=== PATIENT | female | born 1950 | race Two or more races ===

== ENCOUNTER 2020-10-03 07:24 | Outpatient (CLI) | payer OTHER | END 2020-10-03 07:41 | disposition home or self-care (01) | LOC: MRI 07:24 | DX: Z12.31 Encounter for screening mammogram for malignant neoplasm of breast (principal); Z87.898 Personal history of other specified conditions; N60.12 Diffuse cystic mastopathy of left breast; N60.11 Diffuse cystic mastopathy of right breast; N63.0 Unspecified lump in unspecified breast; R87.613 High grade squamous intraepithelial lesion on cytologic smear of cervix (HGSIL); M89.8X0 Other specified disorders of bone, multiple sites; M81.0 Age-related osteoporosis without current pathological fracture; R51.9 Headache, unspecified | CPT/HCPCS: 70553; 76641; 76830; 77067; A9575 ==

== ENCOUNTER 2020-10-06 13:53 | Outpatient (CLI) | payer OTHER | END 2020-10-06 14:01 | disposition home or self-care (01) | LOC: NUCLEAR 13:53 | PROVIDERS: ATTEND Obstetrics & Gynecology Gynecology | DX: M81.0 Age-related osteoporosis without current pathological fracture (principal); M89.9 Disorder of bone, unspecified ==

== ENCOUNTER 2021-10-29 07:37 | Outpatient (CLI) | payer OTHER | END 2021-10-29 07:41 | disposition home or self-care (01) | LOC: TOM 07:37 | PROVIDERS: ATTEND Internal Medicine Cardiovascular Disease | DX: R10.9 Unspecified abdominal pain (principal); M17.9 Osteoarthritis of knee, unspecified; M15.9 Polyosteoarthritis, unspecified ==

== ENCOUNTER → 2021-11-07 07:59 | Outpatient (CLI) | payer OTHER | END | disposition home or self-care (01) | LOC: SONOGRAMA 07:59 | PROVIDERS: ATTEND Internal Medicine Cardiovascular Disease | DX: R10.9 Unspecified abdominal pain (principal) ==

== ENCOUNTER → 2021-12-06 | Outpatient (CLI) | payer OTHER | END | disposition home or self-care (01) | LOC: MAMO-SONO 12:51 | PROVIDERS: ATTEND Obstetrics & Gynecology Gynecology | DX: N60.12 Diffuse cystic mastopathy of left breast (principal); N60.11 Diffuse cystic mastopathy of right breast; N63.0 Unspecified lump in unspecified breast; R87.613 High grade squamous intraepithelial lesion on cytologic smear of cervix (HGSIL); M89.9 Disorder of bone, unspecified; M81.0 Age-related osteoporosis without current pathological fracture ==

== ENCOUNTER 2022-07-03 09:14 | Outpatient (CLI) | payer OTHER | END 2022-07-03 09:19 | disposition home or self-care (01) | LOC: RAD 09:14 | DX: M79.644 Pain in right finger(s) (principal) ==

== ENCOUNTER 2022-07-17 07:16 | Outpatient (CLI) | payer OTHER | END 2022-07-17 07:17 | disposition home or self-care (01) | LOC: LAB 07:16 | PROVIDERS: ATTEND Orthopaedic Surgery | DX: I10 Essential (primary) hypertension (principal); Z76.89 Persons encountering health services in other specified circumstances; D64.9 Anemia, unspecified; E88.9 Metabolic disorder, unspecified; D68.8 Other specified coagulation defects; N39.0 Urinary tract infection, site not specified; E55.9 Vitamin D deficiency, unspecified; M85.9 Disorder of bone density and structure, unspecified; E56.1 Deficiency of vitamin K; E21.3 Hyperparathyroidism, unspecified ==

== ENCOUNTER 2022-12-11 08:27 | Outpatient (CLI) | payer OTHER | END 2022-12-11 08:28 | disposition home or self-care (01) | LOC: LAB 08:27 | PROVIDERS: ATTEND Orthopaedic Surgery | DX: M85.9 Disorder of bone density and structure, unspecified (principal); E83.42 Hypomagnesemia; E56.1 Deficiency of vitamin K; E88.89 Other specified metabolic disorders; M81.8 Other osteoporosis without current pathological fracture ==

== ENCOUNTER 2022-12-11 12:50 | Outpatient (CLI) | payer OTHER | END 2022-12-11 12:57 | disposition home or self-care (01) | LOC: NUCLEAR 12:50 | PROVIDERS: ATTEND Orthopaedic Surgery | DX: M81.0 Age-related osteoporosis without current pathological fracture (principal) ==

== ENCOUNTER 2023-06-18 08:24 | Outpatient (CLI) | payer OTHER | END 2023-06-18 08:32 | disposition home or self-care (01) | LOC: MAMO-SONO 08:24 | PROVIDERS: ATTEND Obstetrics & Gynecology Gynecology | DX: D25.2 Subserosal leiomyoma of uterus (principal); N83.291 Other ovarian cyst, right side; N83.292 Other ovarian cyst, left side; N60.12 Diffuse cystic mastopathy of left breast; N60.11 Diffuse cystic mastopathy of right breast; N63.0 Unspecified lump in unspecified breast; R87.613 High grade squamous intraepithelial lesion on cytologic smear of cervix (HGSIL); Z12.31 Encounter for screening mammogram for malignant neoplasm of breast ==

== ENCOUNTER 2023-08-12 08:31 | Outpatient (CLI) | payer OTHER | END 2023-08-12 08:41 | disposition home or self-care (01) | LOC: SONOGRAMA 08:31 | PROVIDERS: ATTEND Obstetrics & Gynecology Gynecology | DX: N84.0 Polyp of corpus uteri (principal); N60.12 Diffuse cystic mastopathy of left breast; N60.11 Diffuse cystic mastopathy of right breast; R92.0 Mammographic microcalcification found on diagnostic imaging of breast; R92.1 Mammographic calcification found on diagnostic imaging of breast; R87.613 High grade squamous intraepithelial lesion on cytologic smear of cervix (HGSIL); M89.9 Disorder of bone, unspecified ==

== ENCOUNTER 2025-04-05 08:15 | Outpatient (CLI) | payer OTHER | END 2025-04-05 08:21 | disposition home or self-care (01) | LOC: MAMO-SONO 08:15 | PROVIDERS: ATTEND Obstetrics & Gynecology Gynecology | DX: N60.12 Diffuse cystic mastopathy of left breast (principal); N60.11 Diffuse cystic mastopathy of right breast; N63.0 Unspecified lump in unspecified breast; N60.19 Diffuse cystic mastopathy of unspecified breast; N83.209 Unspecified ovarian cyst, unspecified side; N83.292 Other ovarian cyst, left side; N83.291 Other ovarian cyst, right side; R92.0 Mammographic microcalcification found on diagnostic imaging of breast; R87.613 High grade squamous intraepithelial lesion on cytologic smear of cervix (HGSIL); M89.9 Disorder of bone, unspecified; M81.0 Age-related osteoporosis without current pathological fracture; Z12.31 Encounter for screening mammogram for malignant neoplasm of breast ==

== ENCOUNTER 2025-04-15 10:30 | Outpatient (CLI) | payer OTHER | END 2025-04-15 10:31 | disposition home or self-care (01) | LOC: NUCLEAR 10:30 | PROVIDERS: ATTEND Internal Medicine Cardiovascular Disease | DX: M81.0 Age-related osteoporosis without current pathological fracture (principal) ==